=== PATIENT | female | born 1970 | race Caucasian/White ===

== ENCOUNTER → 2022-02-11 14:56 | Outpatient (CLI) | payer OTHER, SELFPAY ==
--- NOTE | 2022-02-11 | DI.MG.S_ITS ---
BILATERAL DIGITAL DIAGNOSTIC MAMMOGRAM 3D/2D: 02/11/2022 CLINICAL: Short term follow up left, due bilateral. Comparison is made to exams dated: 11/22/2018 mammogram, 02/23/2018 ultrasound, 02/23/2018 mammogram, and 02/14/2018 mammogram - [facility]. There are scattered areas of fibroglandular density in both breasts (category b / 25%-50% glandular tissue). There is a stable benign asymmetry in the left breast middle depth central to the nipple seen on the craniocaudal view only. No other significant masses, calcifications, or other findings are seen in either breast. IMPRESSION: BENIGN There is no mammographic evidence of malignancy. A 1 year screening mammogram is recommended. Based on the Tyrer Cuzick model (a risk assessment model) the patient's lifetime risk is 7.7% and her 10 year risk is 1.8%. According to the ACR, ACS, and NCCN guidelines, an annual breast MRI exam along with mammogram is recommended if the patient's lifetime risk is 20% or greater. This exam was interpreted at Station ID: [id number]. NOTE: For mammograms, a report in lay terms will be sent to the patient. Approximately 15% of breast malignancies will not be visualized mammographically. In the management of a palpable breast mass, a negative mammogram must not discourage biopsy of a clinically suspicious lesion. Electronically Signed By: Omero Balderas M.D. lc/:02/11/2022 15:31:22 letter sent: Normal Exam ACR BI-RADS Category 2: Benign Finding(s) 3342F
== END ==
PROVIDERS: PCP Family Medicine; Referring Provider Family Medicine; Visit Provider Family Medicine
DX: R92.8 Other abnormal and inconclusive findings on diagnostic imaging of breast (principal)
CPT/HCPCS: 77066; G0279

== ENCOUNTER 2022-02-24 14:05 | Emergency (ER) | payer OTHER, SELFPAY ==
[2022-02-24] VITALS (9 sets, daily range): BP systolic 127–140; BP diastolic 58–71; PULSE 89–120; RESP 18; TEMP 36.8; O2SAT 99–100
[2022-02-24 15:00] LABS: Add Manual Diff / Slide Review NO; Basophils Absolute Auto 100 /uL (0-100); Basophils Percent Auto 0.6 % (0-2); Eosinophils Absolute Auto 200 /uL (0-450); Eosinophils Percent Auto 1.5 % (2-4); Hematocrit 33.9 % (36-46); Hemoglobin 10.8 g/dL (12.0-16.0); Lymphocytes Absolute Auto 1900 /uL (1100-4500); Lymphocytes Percent Auto 13.5 % (25-40); Mean Corpuscular HGB Conc 31.8 % (30-36); Mean Corpuscular Hemoglobin 24.7 PG (26-34); Mean Corpuscular Volume 77.8 fL (80-100); Monocytes Absolute Auto 1300 /uL (0-900); Neutrophils Absolute Auto 10500 /uL (1500-7000); Neutrophils Percent Auto 75.4 % (50-75); Platelet Count 336 X10^3/uL (150-400); Red Blood Cell Count 4.36 X10^6/uL (4.0-5.2); Red Cell Distribution Width 16.2 % (11.6-14.8)
[2022-02-24 15:02] LABS: Alanine Aminotransferase 22 IU/L (<35); Albumin 4.4 g/dL (3.5-5.0); Albumin Globulin Ratio 1.3 (1.0-2.8); Alkaline Phosphatase 80 U/L (38-126); Aspartate Aminotransferase 31 IU/L (14-36); BUN Creatinine Ratio 21.3 (6-22); Bilirubin Total 0.8 mg/dL (0.2-1.3); Blood Urea Nitrogen 20 mg/dL (7-17); Calcium 9.2 mg/dL (8.4-10.2); Carbon Dioxide 20 mmol/L (22-32); Chloride 99 mmol/L (98-107); Estimated Glomerular Filt Rate > 60 mL/min (>60); Globulin 3.5 g/dL (1.7-4.1); Glucose 203 mg/dL (70-100); HEMOLYSIS 16 (0-50); Lipase 107 U/L (23-300); Potassium 3.9 mmol/L (3.4-5.1); Sodium 133 mmol/L (137-145); Total Protein 7.9 g/dL (6.3-8.2)
--- NOTE | 2022-02-24 16:49 | DI.CT.S_ITS ---
PROCEDURE: CT ABDOMEN PELVIS W CON INDICATIONS: llq pain, diverticulitis vs bowel obstruction TECHNIQUE: After the administration of intravenous contrast, axial sections acquired from the lung bases to the pubic symphysis. Coronal and sagittal reformats were performed. For radiation dose reduction, the following was used: automated exposure control, adjustment of mA and/or kV according to patient size. COMPARISON: [facility], CT, CT ABD PELVIS W CON, 04/08/2015, 3:08. FINDINGS: Image quality: Excellent. Lung bases: Linear densities in the right cardiophrenic angle is most likely scars and atelectasis. Heart: No significant findings. ABDOMEN: Liver: Unremarkable. Gallbladder: Surgically removed. Biliary ducts: Unremarkable. Pancreas: Unremarkable. Spleen: Unremarkable. Adrenal Glands: Unremarkable. Kidneys and Ureters: Unremarkable. Stomach and Bowel: Stomach, small bowel loops, and colon are normal in caliber. There are scattered colonic diverticula. There is inflammatory stranding in the descending colon consistent with acute diverticulitis. No fluid collections to suggest diverticular abscess. Peritoneum: No abnormal intraperitoneal fluid. No free air. Ventral Wall: Tiny fat containing umbilical hernia. There is a 1.4 x 1.9 cm subcutaneous nodule in the left anterior abdominal wall with peripheral calcification, most likely secondary to fat necrosis. The nodule was present on the last exam and appears unchanged. Abdominal Nodes: No retroperitoneal or mesenteric adenopathy by size criteria. Vessels: Aorta and inferior vena cava are normal in size. PELVIS: Pelvic Organs: Unremarkable. Bladder: Unremarkable. Pelvic Nodes: No enlarged lymph nodes. Miscellaneous: No hernias are seen. Bones: Mild levoscoliosis. IMPRESSION: Acute diverticulitis of the descending colon. Dictated by: Lianne Varghese M.D. on 02/24/2022 at 17:18 Approved by: Lianne Varghese M.D. on 02/24/2022 at 17:26
--- NOTE | 2022-02-24 16:51 | ED.ABDPAIN ---
HPI - Abdominal Pain <ANTHONY Deluca - Last Filed: 02/24/22 19:47> General Chief Complaint: Abdominal Pain Stated Complaint: Thinks diverticulitis flare up. sweats/body pain Time Seen by Provider: 02/24/22 16:35 Source: patient Mode of arrival: Ambulatory History of Present Illness HPI narrative: This is a 51-year-old female with history of diverticulitis 8-10 years ago who presents to the emergency department complaining of worsening lower left quadrant pain which she feels is similar to her previous episodes of diverticulitis but states that this episode is worse and she has been having sweating both at nighttime and daytime. She states that she thought it was menopause at 1st but with her worsening lower left quadrant pain she thought this is most likely related to infection. Her primary care provider is Dr. Jason Sewell. Patient states that she feels fatigued, unwell, her pain as an 8/10, she states that she is only having small bits of liquid stool around what she thinks is a hard bit of stool that she can not get out. She denies any rectal pain, denies any dysuria or urinary frequency, states that her pain is primarily lower left quadrant but does extend transverse across her abdomen. Related Data Previous Rx's Medication Instructions Recorded ciprofloxacin HCl 500 mg tablet 500 mg PO BID 8 days #16 tabs 02/24/22 (Cipro) ketorolac 10 mg tablet 10 mg PO TID PRN pain 5 days #20 02/24/22 tabs metronidazole 500 mg tablet 500 mg PO TID 8 days #24 tabs 02/24/22 Allergies Allergy/AdvReac Type Severity Reaction Status Date / Time codeine AdvReac Verified 02/24/22 14:43 Review of Systems <ANTHONY Deluca - Last Filed: 02/24/22 19:47> Review of Systems Narrative: Review of systems is negative for acute abnormalities unless otherwise noted in HPI Patient History <ANTHONY Deluca - Last Filed: 02/24/22 19:47> Social History Smoking Status: Never smoker Smoking Status: Never smoker alcohol intake frequency: 0-2 drinks per day Substance Use Type: marijuana Exam <ANTHONY Deluca Last Filed: 02/24/22 19:47> Narrative Exam Narrative: Reviewed vitals signs and nursing notes. General: cooperative, comfortable, in no acute distress, well groomed, diaphoresis HEENT: symmetrical facial expressions, moist mucous membranes Cardiovascular: no peripheral edema, warm extremities, S1-S2 without additional sounds, tachycardia with regular rhythm Respiratory: normal effort, able to speak in complete sentences, without wheezing, stridor, or abnormal breath sounds. No retractions or tachypnea. GI: abdomen soft, tender to palpation over left lower quadrant, nondistended, without masses, rebound tenderness or exquisite tenderness with exam. No CVA tenderness MSK: moves all extremities, neurovascularly intact, no weakness, normal tone Skin: brisk capillary refill, without pallor or erythema Neuro: normal speech and cognition, A&O x3, ambulatory, clear speech Psych: mental status is grossly normal, congruent mood, normal affect, pleasant and cooperative Initial Vital Signs Initial Vital Signs: Vital Signs Temperature 98.2 F 02/24/22 14:40 Pulse Rate 120 H 02/24/22 14:40 Respiratory Rate 18 02/24/22 14:40 Blood Pressure 127/58 L 02/24/22 14:40 Pulse Oximetry 99 02/24/22 14:40 Oxygen Delivery Method 02/24/22 14:40 <Chris Coello MD - Last Filed: 02/25/22 07:09> Initial Vital Signs Initial Vital Signs: Vital Signs Temperature 98.2 F 02/24/22 14:40 Pulse Rate 120 H 02/24/22 14:40 Respiratory Rate 18 02/24/22 14:40 Blood Pressure 127/58 L 02/24/22 14:40 Pulse Oximetry 99 02/24/22 14:40 Oxygen Delivery Method 02/24/22 14:40 Course <ANTHONY Deluca - Last Filed: 02/24/22 19:47> Orders Ordered: Discontinued Medications Acetaminophen (Acetaminophen 325 Mg Tablet) 650 mg PO NOW ONE Stop: 02/24/22 16:50 Last Admin: 02/24/22 17:31 Dose: 650 mg Documented By: NR Ciprofloxacin (Ciprofloxacin 250 Mg Tablet) 500 mg PO NOW ONE Stop: 02/24/22 18:28 Last Admin: 02/24/22 18:33 Dose: 500 mg Documented By: NR Lactated Ringer's (Lactated Ringers) 1,000 mls @ 1,000 mls/hr IV BOLUS ONE Stop: 02/24/22 17:48 Last Infusion: 02/24/22 18:47 Dose: 0 mls/hr Documented By: Admin: 02/24/22 17:34 Dose: 1,000 mls/hr Documented By: NR Ciprofloxacin (Cipro) 400 mg in 200 mls @ 200 mls/hr IV Q12H TODD Last Admin: 02/24/22 18:46 Dose: Not Given Documented By: NR Metronidazole (Flagyl) 500 mg in 100 mls @ 100 mls/hr IV NOW ONE Stop: 02/24/22 18:43 Last Admin: 02/24/22 18:47 Dose: Not Given Documented By: NR Ketorolac Tromethamine (Ketorolac 30 Mg/Ml Vial) 15 mg IV NOW ONE Stop: 02/24/22 16:50 Last Admin: 02/24/22 17:33 Dose: 15 mg Documented By: NR Vital Signs Vital signs: Vital Signs - 8 hr 02/24/22 14:40 02/24/22 16:36 02/24/22 16:37 Temperature 98.2 F Pulse Rate 120 H 100 H Respiratory Rate 18 Blood Pressure 127/58 L 134/71 Pulse Oximetry 99 100 Oxygen Delivery Method Room Air 02/24/22 16:37 02/24/22 17:01 02/24/22 17:02 Temperature Pulse Rate 101 H 96 H Respiratory Rate Blood Pressure 140/63 Pulse Oximetry 100 99 Oxygen Delivery Method 02/24/22 17:02 02/24/22 17:30 02/24/22 18:00 Temperature Pulse Rate 98 H 94 H 89 Respiratory Rate Blood Pressure Pulse Oximetry 100 100 99 Oxygen Delivery Method 02/24/22 18:30 02/24/22 18:35 02/24/22 18:35 Temperature Pulse Rate 94 H 94 H Respiratory Rate Blood Pressure 134/64 Pulse Oximetry 99 99 Oxygen Delivery Method <Chris Coello MD - Last Filed: 02/25/22 07:09> Orders Ordered: Discontinued Medications Acetaminophen (Acetaminophen 325 Mg Tablet) 650 mg PO NOW ONE Stop: 02/24/22 16:50 Last Admin: 02/24/22 17:31 Dose: 650 mg Documented By: NR Ciprofloxacin (Ciprofloxacin 250 Mg Tablet) 500 mg PO NOW ONE Stop: 02/24/22 18:28 Last Admin: 02/24/22 18:33 Dose: 500 mg Documented By: NR Lactated Ringer's (Lactated Ringers) 1,000 mls @ 1,000 mls/hr IV BOLUS ONE Stop: 02/24/22 17:48 Last Infusion: 02/24/22 18:47 Dose: 0 mls/hr Documented By: Admin: 02/24/22 17:34 Dose: 1,000 mls/hr Documented By: NR Ciprofloxacin (Cipro) 400 mg in 200 mls @ 200 mls/hr IV Q12H TODD Last Admin: 02/24/22 18:46 Dose: Not Given Documented By: NR Metronidazole (Flagyl) 500 mg in 100 mls @ 100 mls/hr IV NOW ONE Stop: 02/24/22 18:43 Last Admin: 02/24/22 18:47 Dose: Not Given Documented By: NR Ketorolac Tromethamine (Ketorolac 30 Mg/Ml Vial) 15 mg IV NOW ONE Stop: 02/24/22 16:50 Last Admin: 02/24/22 17:33 Dose: 15 mg Documented By: NR Vital Signs Vital signs: Vital Signs - 8 hr 02/24/22 14:40 02/24/22 16:36 02/24/22 16:37 Temperature 98.2 F Pulse Rate 120 H 100 H Respiratory Rate 18 Blood Pressure 127/58 L 134/71 Pulse Oximetry 99 100 Oxygen Delivery Method Room Air 02/24/22 16:37 02/24/22 17:01 02/24/22 17:02 Temperature Pulse Rate 101 H 96 H Respiratory Rate Blood Pressure 140/63 Pulse Oximetry 100 99 Oxygen Delivery Method 02/24/22 17:02 02/24/22 17:30 02/24/22 18:00 Temperature Pulse Rate 98 H 94 H 89 Respiratory Rate Blood Pressure Pulse Oximetry 100 100 99 Oxygen Delivery Method 02/24/22 18:30 02/24/22 18:35 02/24/22 18:35 Temperature Pulse Rate 94 H 94 H Respiratory Rate Blood Pressure 134/64 Pulse Oximetry 99 99 Oxygen Delivery Method MDM - Abdominal Pain <ANTHONY Deluca - Last Filed: 02/24/22 19:47> Lab Data Result diagrams: 02/24/22 14:46 02/24/22 14:46 Labs: Lab Results 02/24/22 02/24/22 02/24/22 Range/Units 14:46 14:46 14:46 WBC 14.0 H (4.5-11.0) X10^3/uL RBC 4.36 (4.0-5.2) X10^6/uL Hgb 10.8 L (12.0-16.0) g/dL Hct 33.9 L (36-46) % MCV 77.8 L (80-100) fL MCH 24.7 L (26-34) PG MCHC 31.8 (30-36) % RDW 16.2 H (11.6-14.8) % Plt Count 336 (150-400) X10^3/uL Neut % (Auto) 75.4 H (50-75) % Lymph % (Auto) 13.5 L (25-40) % [place] % (Auto) 9.0 (3-14) % Eos % (Auto) 1.5 L (2-4) % Baso % (Auto) 0.6 (0-2) % Neut # (Auto) 61719 H (4434-2330) /uL Lymph # (Auto) 1900 (4543-2080) /uL [place] # (Auto) 1300 H (0-900) /uL Eos # (Auto) 200 (0-450) /uL Baso # (Auto) 100 (0-100) /uL Sodium 133 L (137-145) mmol/L Potassium 3.9 (3.4-5.1) mmol/L Chloride 99 (98-107) mmol/L Carbon Dioxide 20 L (22-32) mmol/L BUN 20 H (7-17) mg/dL Creatinine 0.94 (0.52-1.04) mg/dL Estimated GFR > 60 (>60) mL/min BUN/Creatinine Ratio 21.3 (6-22) Glucose 203 H (70-100) mg/dL Lactate (0.7-2.1) mmol/L Calcium 9.2 (8.4-10.2) mg/dL Total Bilirubin 0.8 (0.2-1.3) mg/dL AST 31 (14-36) IU/L ALT 22 (<35) IU/L Alkaline Phosphatase 80 (38-126) U/L C-Reactive Protein 13.9 H (<1.0) mg/dL Total Protein 7.9 (6.3-8.2) g/dL Albumin 4.4 (3.5-5.0) g/dL Globulin 3.5 (1.7-4.1) g/dL Albumin/Globulin Ratio 1.3 (1.0-2.8) Lipase 107 (23-300) U/L Procalcitonin (<0.5) ng/mL 02/24/22 02/24/22 Range/Units 14:46 17:45 WBC (4.5-11.0) X10^3/uL RBC (4.0-5.2) X10^6/uL Hgb (12.0-16.0) g/dL Hct (36-46) % MCV (80-100) fL MCH (26-34) PG MCHC (30-36) % RDW (11.6-14.8) % Plt Count (150-400) X10^3/uL Neut % (Auto) (50-75) % Lymph % (Auto) (25-40) % [place] % (Auto) (3-14) % Eos % (Auto) (2-4) % Baso % (Auto) (0-2) % Neut # (Auto) (7169-4693) /uL Lymph # (Auto) (7290-8957) /uL [place] # (Auto) (0-900) /uL Eos # (Auto) (0-450) /uL Baso # (Auto) (0-100) /uL Sodium (137-145) mmol/L Potassium (3.4-5.1) mmol/L Chloride (98-107) mmol/L Carbon Dioxide (22-32) mmol/L BUN (7-17) mg/dL Creatinine (0.52-1.04) mg/dL Estimated GFR (>60) mL/min BUN/Creatinine Ratio (6-22) Glucose (70-100) mg/dL Lactate 1.4 (0.7-2.1) mmol/L Calcium (8.4-10.2) mg/dL Total Bilirubin (0.2-1.3) mg/dL AST (14-36) IU/L ALT (<35) IU/L Alkaline Phosphatase (38-126) U/L C-Reactive Protein (<1.0) mg/dL Total Protein (6.3-8.2) g/dL Albumin (3.5-5.0) g/dL Globulin (1.7-4.1) g/dL Albumin/Globulin Ratio (1.0-2.8) Lipase (23-300) U/L Procalcitonin 0.10 (<0.5) ng/mL Point of care testing: Urine Dip Bedside Urine Glucose Negative Bedside Urine Bilirubin - Negative Bedside Urine Ketone - Negative Urine Specific [place] 1.015 Bedside Urine Occult Blood - Negative Bedside Urine pH 6 Bedside Urine Protein - Negative Bedside Urine Urobilinogen - Negative Bedside Urine Nitrite - Negative Bedside Urine Leukocytes - Negative Esterase Imaging Data CT scan - abdomen/pelvis: Radiologist's Impression: PROCEDURE:? CT ABDOMEN PELVIS W CON ? INDICATIONS:? llq pain, diverticulitis vs bowel obstruction ? TECHNIQUE:? After the administration of intravenous contrast, axial sections acquired from the lung bases to the pubic symphysis.? Coronal and sagittal reformats were performed.? For radiation dose reduction, the following was used:? automated exposure control, adjustment of mA and/or kV according to patient size.? ? COMPARISON:? [facility], CT, CT ABD PELVIS W CON, 04/08/2015, 3:08. ? FINDINGS:? Image quality:? Excellent.? ? Lung bases:? Linear densities in the right cardiophrenic angle is most likely scars and atelectasis. Heart:? No significant findings. ? ABDOMEN: Liver:? Unremarkable.? ? Gallbladder:? Surgically removed.? ? Biliary ducts:? Unremarkable.? ? Pancreas:? Unremarkable.? ? Spleen:? Unremarkable.? ? Adrenal Glands:? Unremarkable.? ? Kidneys and Ureters:? Unremarkable.? ? ? Stomach and Bowel:? Stomach, small bowel loops, and colon are normal in caliber.? There are scattered colonic diverticula.? There is inflammatory stranding in the descending colon consistent with acute diverticulitis.? No fluid collections to suggest diverticular abscess. Peritoneum:? No abnormal intraperitoneal fluid.? No free air.? ? Ventral Wall: ? Tiny fat containing umbilical hernia.? There is a 1.4 x 1.9 cm subcutaneous nodule in the left anterior abdominal wall with peripheral calcification, most likely secondary to fat necrosis.? The nodule was present on the last exam and appears unchanged. Abdominal Nodes:? No retroperitoneal or mesenteric adenopathy by size criteria.? Vessels:? Aorta and inferior vena cava are normal in size.? ? PELVIS: Pelvic Organs:? Unremarkable.? ? Bladder:? Unremarkable.? ? Pelvic Nodes: No enlarged lymph nodes.? Miscellaneous: No hernias are seen. ? ? ? Bones:? Mild levoscoliosis.? IMPRESSION:? Acute diverticulitis of the descending colon. ? Dictated by: Lianne Varghese M.D. on 02/24/2022 at 17:18 ? ? Approved by: Lianne Varghese M.D. on 02/24/2022 at 17:26 ? MDM Narrative Medical decision making narrative: This is a 51-year-old female presents to the emergency department with concern for diverticulitis infection since she is had history of this 8 years ago. Patient reports that she is been feeling unwell for the last few days, had corn on the cob and popcorn and thinks it may have triggered her diverticulitis. On lab work today she does have a leukocytosis of 14, mild anemia, hemoglobin of 10.8 and hematocrit of 33.9, patient denies any blood in her stool, she does have a left shift, sodium 133, potassium 3.9, creatinine 0.94 and GFR over 60. Lactate is 1.4, no elevation in her liver enzymes or total bilirubin, her CRP is 13.9 with a procalcitonin of 0.10. Her lipase is 107. She was given 1 L of lactated Ringer's, ketorolac and Tylenol for her pain which she states helped her go from an 8/10 down to a 4/10. CT abdomen pelvis with contrast was obtained for patient's complaint of worsened symptoms this time with her diverticulitis concern. CT shows acute diverticulitis of the descending colon without bowel obstruction, there is inflammatory stranding in the descending colon consistent with diverticulitis and no diverticular abscess. Patient was treated with IV Flagyl and ciprofloxacin in the emergency department, she was prescribed the same at home and also given ketorolac as needed for her pain and inflammation. She understands to have a clear liquid diet for the next 1-2 days until she starts to improve. Patient is appropriate and amenable to discharge home. Vital signs are stable on repeat examination is unremarkable. Patient has been informed of results. Patient has been given strict return to ER precautions for any new or worsening symptoms. Patient understands to follow up closely with outpatient providers as instructed. Patient understands plan and agrees to discharge home. All questions and concerns answered at this time. <Chris Coello MD - Last Filed: 02/25/22 07:09> Lab Data Labs: Lab Results 02/24/22 02/24/22 02/24/22 Range/Units 14:46 14:46 14:46 WBC 14.0 H (4.5-11.0) X10^3/uL RBC 4.36 (4.0-5.2) X10^6/uL Hgb 10.8 L (12.0-16.0) g/dL Hct 33.9 L (36-46) % MCV 77.8 L (80-100) fL MCH 24.7 L (26-34) PG MCHC 31.8 (30-36) % RDW 16.2 H (11.6-14.8) % Plt Count 336 (150-400) X10^3/uL Neut % (Auto) 75.4 H (50-75) % Lymph % (Auto) 13.5 L (25-40) % [place] % (Auto) 9.0 (3-14) % Eos % (Auto) 1.5 L (2-4) % Baso % (Auto) 0.6 (0-2) % Neut # (Auto) 50771 H (7649-9500) /uL Lymph # (Auto) 1900 (4858-2515) /uL [place] # (Auto) 1300 H (0-900) /uL Eos # (Auto) 200 (0-450) /uL Baso # (Auto) 100 (0-100) /uL Sodium 133 L (137-145) mmol/L Potassium 3.9 (3.4-5.1) mmol/L Chloride 99 (98-107) mmol/L Carbon Dioxide 20 L (22-32) mmol/L BUN 20 H (7-17) mg/dL Creatinine 0.94 (0.52-1.04) mg/dL Estimated GFR > 60 (>60) mL/min BUN/Creatinine Ratio 21.3 (6-22) Glucose 203 H (70-100) mg/dL Lactate (0.7-2.1) mmol/L Calcium 9.2 (8.4-10.2) mg/dL Total Bilirubin 0.8 (0.2-1.3) mg/dL AST 31 (14-36) IU/L ALT 22 (<35) IU/L Alkaline Phosphatase 80 (38-126) U/L C-Reactive Protein 13.9 H (<1.0) mg/dL Total Protein 7.9 (6.3-8.2) g/dL Albumin 4.4 (3.5-5.0) g/dL Globulin 3.5 (1.7-4.1) g/dL Albumin/Globulin Ratio 1.3 (1.0-2.8) Lipase 107 (23-300) U/L Procalcitonin (<0.5) ng/mL 02/24/22 02/24/22 Range/Units 14:46 17:45 WBC (4.5-11.0) X10^3/uL RBC (4.0-5.2) X10^6/uL Hgb (12.0-16.0) g/dL Hct (36-46) % MCV (80-100) fL MCH (26-34) PG MCHC (30-36) % RDW (11.6-14.8) % Plt Count (150-400) X10^3/uL Neut % (Auto) (50-75) % Lymph % (Auto) (25-40) % [place] % (Auto) (3-14) % Eos % (Auto) (2-4) % Baso % (Auto) (0-2) % Neut # (Auto) (3662-5105) /uL Lymph # (Auto) (1326-8393) /uL [place] # (Auto) (0-900) /uL Eos # (Auto) (0-450) /uL Baso # (Auto) (0-100) /uL Sodium (137-145) mmol/L Potassium (3.4-5.1) mmol/L Chloride (98-107) mmol/L Carbon Dioxide (22-32) mmol/L BUN (7-17) mg/dL Creatinine (0.52-1.04) mg/dL Estimated GFR (>60) mL/min BUN/Creatinine Ratio (6-22) Glucose (70-100) mg/dL Lactate 1.4 (0.7-2.1) mmol/L Calcium (8.4-10.2) mg/dL Total Bilirubin (0.2-1.3) mg/dL AST (14-36) IU/L ALT (<35) IU/L Alkaline Phosphatase (38-126) U/L C-Reactive Protein (<1.0) mg/dL Total Protein (6.3-8.2) g/dL Albumin (3.5-5.0) g/dL Globulin (1.7-4.1) g/dL Albumin/Globulin Ratio (1.0-2.8) Lipase (23-300) U/L Procalcitonin 0.10 (<0.5) ng/mL Point of care testing: Urine Dip Bedside Urine Glucose Negative Bedside Urine Bilirubin - Negative Bedside Urine Ketone - Negative Urine Specific [place] 1.015 Bedside Urine Occult Blood - Negative Bedside Urine pH 6 Bedside Urine Protein - Negative Bedside Urine Urobilinogen - Negative Bedside Urine Nitrite - Negative Bedside Urine Leukocytes - Negative Esterase Discharge Plan Departure Patient Disposition: Home Clinical Impression: Acute diverticulitis Instructions: Diverticulitis Activity Restrictions/Additional Instructions: *You have been diagnosed with acute diverticulitis. Please have a clear liquid diet for the next 1-2 days, incorporate MiraLax at least once daily if not twice daily until you are having soft stools and can pass them easily. I have also sent you Dulcolax suppository in case you have difficulty with hard stool in your rectum. Please take these 2 antibiotics for the next 8 days. Schedule follow-up with your primary care provider or at least call to let him know that you are treated with antibiotics for diverticulitis again. Your urine does not show any infection, no other problems were found on your workup today. I hope that you start feeling better soon, focus on your hydration, you can use ketorolac as needed for inflammation and combine it with Tylenol as needed for pain. Please return for any worsening pain, fever, vomiting, or any other concerns which are worsening. Thank you for trusting us with your care and I wish you the best. For pain and fever please take 600 mg of ibuprofen every 6 hours with 650 mg of Tylenol every 6 hours with a big drink of something clear. 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 Please take the next day off of work and see how you are feeling before returning on Monday. *What to do: *Please continue to take your regular medications as directed. [x ] New medication prescriptions sent to your pharmacy: [[facility] ] [ ] New medication written as a paper prescription [ ] No new medications given *Please follow up with your primary care provider in 2-3 days, call for an appointment. Let them know you were seen in the Emergency Department and that we asked that you be seen for follow-up. We will electronically transmit a record of today's note if your PCP is in our system *If you do not have a primary care provider please contact [phone] to establish care with one of the [facility] primary care providers. *Return to Emergency Department if you should have any new, worsening, or concerning symptoms, such as [fever greater than 101F, chills, worsening pain, persistent vomiting or other bothersome symptoms]. Prescriptions: New ciprofloxacin HCl [Cipro] 500 mg tablet 500 mg PO BID 8 Days Qty: 16 0RF metronidazole 500 mg tablet 500 mg PO TID 8 Days Qty: 24 0RF ketorolac 10 mg tablet 10 mg PO TID PRN (Reason: pain) 5 Days Qty: 20 0RF Rx Instructions: Please take with food and water and do not combine with ibuprofen Referrals: Jason Sewell MD [Primary Care Provider] - Stand Alone Forms: Work Release Note Visit Report Forms: Patient Portal/API <Chris Coello MD - Last Filed: 02/25/22 07:09> [facility] Sonny[facility] Attestation: I was immediately available in the department for consultation. ?This documentation has been reviewed and I agree with assessment and plan. Supervised by Chris Coello MD
[2022-02-24] MEDS: ACETAMINOPHEN 325 MG TABLET 650 MG PO (17:31)
[2022-02-24] MEDS: KETOROLAC 30 MG/ML VIAL 15 MG IV (17:33)
[2022-02-24] MEDS: LACTATED RINGERS 1,000 ML 1000 ML IV (17:34)
[2022-02-24 18:02] LABS: C-Reactive Protein Quant 13.9 mg/dL (<1.0)
[2022-02-24 18:32] LABS: Lactate (Lactic Acid) 1.4 mmol/L (0.7-2.1)
[2022-02-24] MEDS: CIPROFLOXACIN 250 MG TABLET 500 MG PO (18:33)
== END 2022-02-24 18:49 | disposition home or self-care (01) ==
PROVIDERS: Emergency Medicine; Emergency Provider Nurse Practitioner Critical Care Medicine; PCP Family Medicine
DX: K57.92 Diverticulitis of intestine, part unspecified, without perforation or abscess without bleeding (principal)
CPT/HCPCS: 36415; 74177; 80053; 81003; 83605; 83690; 84145; 85025; 86140; 87040; 96361; 96374; 99284; J1885; Q9967

== ENCOUNTER → 2024-09-02 15:07 | Outpatient (CLI) | payer OTHER, SELFPAY ==
--- NOTE | 2024-09-02 15:09 | DI.MG.S_ITS ---
MM screening mammo BI: 09/02/2024. BI-RADS: 1 CLINICAL: 54-year old female for bilateral screening mammogram. Tyrer-Cuzick lifetime risk of 13.4%. No personal or first-degree family history of breast cancer. Current reported family history of breast cancer: paternal grandmother. History of ovarian cancer in one first-degree relative. PRIOR EXAMS 02/11/2022, 11/22/2018, 02/23/2018, 02/14/2018. MAMMOGRAPHY TECHNIQUE: 2D and 3D (tomosynthesis) digital mammographic views obtained, with additional images as needed for full coverage. Current study was also evaluated with a Computer Aided Detection (CAD) system. DENSITY B. There are scattered areas of fibroglandular density. MAMMOGRAPHY FINDINGS Bilateral: No suspicious mass, asymmetry, microcalcification, or other abnormality seen. No significant change from comparison. IMPRESSION: * No evidence of malignancy. RECOMMENDATIONS Bilateral * Annual screening mammography. OVERALL ASSESSMENT CATEGORY BI-RADS-1: Negative. [employer] recommends annual screening mammography beginning at age 40 for women with average risk of breast cancer. ELECTRONICALLY SIGNED: Kim Mcqueen M.D. on 09/03/2024 at 08:26:59 AM PT Interpreting Station ID: [id number]
== END ==
PROVIDERS: PCP Family Medicine; Referring Provider Family Medicine; Visit Provider Family Medicine
DX: Z12.31 Encounter for screening mammogram for malignant neoplasm of breast (principal); Z80.3 Family history of malignant neoplasm of breast; Z80.41 Family history of malignant neoplasm of ovary
CPT/HCPCS: 77063; 77067